=== PATIENT | female | born 1950 | race Caucasian/White ===

== ENCOUNTER → 2016-09-26 | Outpatient (CLI) | payer MEDICARE ==
--- NOTE | 2016-09-26 16:10 | RAD ---
Thoracic spine radiographs History: Thoracic back pain, no known injury. Comparison: None. Findings: AP, lateral, and swimmer's view of the thoracic spine. Osseous structures appear demineralized. There is dextroconvex scoliosis of the thoracolumbar junction with Johnston angle about 25 degrees from T11 through L3. There are 12 rib-bearing thoracic type vertebral bodies. No acute fracture or acute malalignment is identified. Paravertebral soft tissue stripe appears preserved. Impression: 1. Demineralization. 2. No acute osseous traumatic injury identified. 3. Scoliosis at the thoracolumbar junction.
== END | disposition home or self-care (01) ==
LOC: DXRADRC 11:32
PROVIDERS: ATTEND Nurse Practitioner Family
DX: M41.85 Other forms of scoliosis, thoracolumbar region (principal); M81.0 Age-related osteoporosis without current pathological fracture
CPT/HCPCS: 72072

== ENCOUNTER → 2017-02-16 | Outpatient (CLI) | payer MEDICARE ==
--- NOTE | 2017-02-16 10:10 | RAD ---
Pelvic ultrasound to include transabdominal and transvaginal imaging 02/16/2017 Clinical history: Pelvic pain. Technique: Using the distended urinary bladder as a sonographic window, a real-time ultrasound examination of the pelvis was performed. Additionally in an attempt to better evaluate the uterus and adnexa, a transvaginal ultrasound study was performed. Multiple images were obtained. Findings: The uterus is within normal limits in size and echogenicity. It measures 7.2 x 4.7 x 3.4 cm in longitudinal, transverse, and AP dimensions. The endometrial echo complex measures 3.5 mm in thickness which is within normal limits. No focal abnormality of the uterus is seen. Both ovaries are within normal limits in size and echogenicity. The right ovary measures 2.4 x 1.5 x 1.5 cm in size. The left ovary measures 2.6 x 2.1 x 1.6 cm in size. No adnexal mass is seen. No free fluid is noted. Impression: Negative study.
--- NOTE | 2017-02-16 10:32 | RAD ---
Ultrasound of the abdomen 02/16/2017 Clinical history: Abdominal pain. Technique: A real-time ultrasound examination of the abdomen was performed. Multiple images were obtained. Findings: The gallbladder is well-distended. No gallstones are visualized. The gallbladder wall thickness is within normal limits. No pericholecystic fluid is seen. The common bile duct measures 2.4 mm in diameter which is within normal limits. The liver is normal in size and echogenicity. It measures 15 cm in length. The spleen, visualized portions of the pancreas and both kidneys are within normal limits. The abdominal aorta tapers normally. The inferior vena cava is within normal limits. No free fluid is seen. Impression: Negative study.
== END | disposition home or self-care (01) ==
LOC: US 07:44
PROVIDERS: ATTEND Physician Assistant
DX: N28.1 Cyst of kidney, acquired (principal); N28.89 Other specified disorders of kidney and ureter; N32.89 Other specified disorders of bladder
CPT/HCPCS: 76700; 76830; 76856

== ENCOUNTER 2017-10-17 14:35 | Emergency (ER) | payer MEDICARE ==
[2017-10-17 14:36] VITALS: BP 147/63
[2017-10-17] MEDS ORDERED: DICL100G18 TP (16:15)
--- NOTE | 2017-10-17 16:15 | PHYS DOC ---
Past History Past Medical History: Hypothyroid, Other Past Surgical History: Tonsillectomy, Other Alcohol Use: None Drug Use: None Adult General Chief Complaint Chief Complaint: MECHANICAL FALL HPI HPI Patient is a 67 year old F who presents after a slip and fall just prior to arrival. Suzanne hit her chin and notes jaw pain. She has no headache. He also does have mild sternal chest pain is worse with palpation and movement. Her pain is better with rest and positioning. She has no other symptoms at this time. Review of Systems Review of Systems Constitutional: Denies fever or chills [] Eyes: Denies change in visual acuity, redness, or eye pain [] HENT: Denies nasal congestion or sore throat [] Respiratory: Denies cough or shortness of breath [] Cardiovascular: No additional information not addressed in HPI [] GI: Denies abdominal pain, nausea, vomiting, bloody stools or diarrhea [] : Denies dysuria or hematuria [] Musculoskeletal: Denies back pain or joint pain [] Integument: Denies rash or skin lesions [] Neurologic: Denies headache, focal weakness or sensory changes [] Endocrine: Denies polyuria or polydipsia [] All other systems were reviewed and found to be within normal limits, except as documented in this note. Family History Family History No pertinent family medical history was reported Current Medications Current Medications Current medications reviewed Allergies Allergies Allergies Coded Allergies Type Severity Reaction Last Updated Verified Penicillins Allergy Unknown 10/17/17 Yes azithromycin Allergy Unknown 10/17/17 Yes ciprofloxacin Allergy Unknown 10/17/17 Yes erythromycin base Allergy Unknown 10/17/17 Yes Physical Exam Physical Exam Constitutional: Well developed, well nourished, no acute distress, non-toxic appearance. [] HENT: Normocephalic, 2 similar laceration on the chin Eyes: PERRLA, EOMI, conjunctiva normal, no discharge. [] Neck: Normal range of motion, no tenderness, supple, no stridor. [] Cardiovascular:Heart rate regular rhythm Lungs & Thorax: Bilateral breath sounds clear to auscultation [] Abdomen: Bowel sounds normal, soft, no tenderness, no masses, no pulsatile masses. [] Skin: Warm, dry, no erythema, no rash. [] Back: No tenderness, no CVA tenderness. [] Extremities: No tenderness, no cyanosis, no clubbing, ROM intact, no edema. [] Neurologic: Alert and oriented X 3, normal motor function, normal sensory function, no focal deficits noted. [] Psychologic: Affect normal, judgement normal, mood normal. [] Current Patient Data Vital Signs Vital Signs Date Time Temp Pulse Resp B/P (MAP) Pulse Ox O2 Delivery O2 Flow Rate FiO2 10/17/17 14:36 98.3 81 16 98 Room Air EKG EKG [] Radiology/Procedures Radiology/Procedures Mandible x-ray and chest x-ray - no acute disease noted Course & Med Decision Making Course & Med Decision Making Pertinent Labs and Imaging studies reviewed. (See chart for details) Suzanne laceration was cleaned and repaired using Dermabond. Steri-Strips were also applied for added strength. Dragon Disclaimer Dragon Disclaimer This electronic medical record was generated, in whole or in part, using a voice recognition dictation system. Departure Departure: Impression: Primary Impression: Chin laceration Additional Impression: TMJ (sprain of temporomandibular joint) Disposition: HOME, SELF-CARE Condition: STABLE Referrals: LUIS ANTONIO YATES APRN (PCP) Patient Instructions: Facial Laceration, Temporomandibular Problems Additional Instructions: Suzanne was seen in the emergency department after a fall. No emergency medical condition was found on history or physical exam. She had normal imaging of her jaw and chest. She did have a laceration which was repaired with Dermabond. She is encouraged follow-up with her primary care doctor as needed for further management. She is also advised to return to the emergency room if she develops new or worsening symptoms. Scripts Diclofenac Sodium (VOLTAREN) 100 Gm Gel..gram. 1 GM TP QID, #100 GM 2 Refills Prov: AAYUSH KENNY MD 10/17/17 Problem Qualifiers Primary Impression: Chin laceration Encounter type: initial encounter Qualified Codes: S01.81XA - Laceration without foreign body of other part of head, initial encounter Additional Impression: TMJ (sprain of temporomandibular joint) Encounter type: initial encounter Qualified Codes: S03.40XA - Sprain of jaw , unspecified side, initial encounter AAYUSH KENNY MD Oct 17, 2017 16:15
[2017-10-17] MEDS ORDERED: DIPHTH,PERTUSS(ACELL),TET TOX 0.5 ML DISP.SYRIN. VAX IM ONE (16:30)
--- NOTE | 2017-10-18 11:29 | RAD ---
CHEST PA LATERAL Clinical Indication: chest pain Comparison: Chest radiograph dated 11/08/2010 Findings: Hyperexpanded lung volume. Bilateral nipple shadows. No focal consolidations. Normal pulmonary vasculature. Blunting of the costophrenic angles. No pneumothorax. The cardiomediastinal silhouette is normal. Unchanged mildly atherosclerotic thoracic aorta. No acute osseous abnormality. IMPRESSION: 1. No focal consolidations. 2. Blunting of the bilateral costophrenic angles may relate to small pleural effusions.
--- NOTE | 2017-10-18 11:32 | RAD ---
MANDIBLE COMPLETE 4+V Clinical Indication: fall, facial laceration Comparison: None. Findings: No displaced fracture or malalignment. The visualized paranasal sinuses are well aerated. Dental amalgam. No significant soft tissue abnormality. IMPRESSION: No displaced fracture or malalignment. If there is continued concern, CT face could be obtained.
== END 2017-10-17 16:29 | disposition home or self-care (01) ==
LOC: ER 14:35
DX: S01.81XA Laceration without foreign body of other part of head, initial encounter (principal); S03.40XA Sprain of jaw, unspecified side, initial encounter; E03.9 Hypothyroidism, unspecified; Z88.0 Allergy status to penicillin; Z88.1 Allergy status to other antibiotic agents; W01.198A Fall on same level from slipping, tripping and stumbling with subsequent striking against other object, initial encounter; Y93.89 Activity, other specified; Y99.8 Other external cause status; Y92.89 Other specified places as the place of occurrence of the external cause
CPT/HCPCS: 12011; 70110; 71046; 90471; 90715; 99284-25

== ENCOUNTER → 2017-11-12 | Outpatient (CLI) | payer MEDICARE ==
[2017-10-17 14:36] VITALS: BP 147/63
[~2017-11-12] MED LIST: DICL100G18 TP
--- NOTE | 2017-11-12 10:52 | RAD ---
History: Neck pain and back pain. Fall October 17, 2017. Comparison: Thoracic spine radiographs September 26, 2016 Findings: AP, lateral, and a suboptimal open-mouth odontoid views of the cervical spine. Patient is unable to open mouth optimally for odontoid view due to mandibular condyle fracture. Evaluation of C1 and C2 articulation is consequently limited. No acute fracture or acute malalignment is identified. Degenerative disc disease with partial loss of disc height at C5-6 is seen. No prevertebral soft tissue swelling is identified. Mild multilevel facet degeneration is seen. Osseous structures appear demineralized. AP, lateral, and swimmer's view of the thoracic spine. Focal moderate dextroconvex rotary scoliosis is seen at the thoracolumbar junction. Osseous structures are significantly demineralized. No convincing vertebral fracture is identified. Paravertebral soft tissue stripe appears preserved. Impression: 1. Demineralization. 2. No definite acute osseous abnormality identified in the cervical or thoracic spine. Electronically signed by: Jayme Chu MD (11/12/2017 10:49 AM) [facility]
== END | disposition home or self-care (01) ==
LOC: PMG 10:08
PROVIDERS: ATTEND Nurse Practitioner Family
DX: M50.30 Other cervical disc degeneration, unspecified cervical region (principal); M81.8 Other osteoporosis without current pathological fracture; W19.XXXD Unspecified fall, subsequent encounter
CPT/HCPCS: 72040; 72072

== ENCOUNTER → 2018-09-14 | Outpatient (CLI) | payer MEDICARE ==
--- NOTE | 2018-09-14 10:47 | RAD ---
EXAM: Sacroiliac joints, 3 views; lumbar spine, 5 views. HISTORY: Pain. COMPARISON: None. FINDINGS: 3 views of the sacroiliac joints and 5 views lumbar spine are obtained. There is S-shaped lumbar scoliosis, with dextrocurvature centered at L2 and compensatory levocurvature centered at L5. There is no significant listhesis. There is slight rightward lateral translation of L3 on L4. The vertebral bodies are normal in height. There is mild endplate remodeling at multiple levels. This is probably along the left aspect of L2-L3 and right aspect of L4-L5. This corresponds with the levels of maximum scoliotic curvature. There is slight disc space narrowing at L2-L3. There is facet arthropathy predominantly at the lumbosacral junction. There are incidental hypoplastic T12 ribs. The sacroiliac joints are intact. IMPRESSION: 1. Lumbar scoliosis and mild multilevel degenerative change, described above. 2. No acute osseous finding. Electronically signed by: Lore Sanchez MD (09/14/2018 10:44 AM) [facility]
== END | disposition home or self-care (01) ==
LOC: RAD 08:48
PROVIDERS: ATTEND Physician Assistant Medical
DX: M41.86 Other forms of scoliosis, lumbar region (principal); M47.896 Other spondylosis, lumbar region; M12.88 Other specific arthropathies, not elsewhere classified, other specified site
CPT/HCPCS: 72110; 72202

== ENCOUNTER 2020-03-03 13:35 | Emergency (ER) | payer MEDICARE ==
[~2020-03-03] VITALS: Ht 165.1 cm; Wt 52.2 kg
[2020-03-03 14:19] LABS: BASO % 1 % (0-3); EOS % 0 % (0-3); HEMATOCRIT 42.1 % (36.0-47.0); HEMOGLOBIN 14.1 g/dL (12.0-15.5); LYMPH # 0.8 x10^3/uL (1.0-4.8); LYMPH % 15 % (24-48); MEAN CORPUSCULAR HEMOGLOBIN 32 pg (25-35); MEAN CORPUSCULAR HGB CONC 33 g/dL (31-37); MEAN CORPUSCULAR VOLUME 95 fL (79-100); MONO # 0.4 x10^3/uL (0.0-1.1); MONO % 7 % (0-9); NEUT # 4.2 x10^3uL (1.8-7.7); NEUT % 78 % (31-73); PLATELET COUNT 207 x10^3/uL (140-400); RED BLOOD COUNT 4.42 x10^6/uL (3.50-5.40); RED CELL DISTRIBUTION WIDTH 13.8 % (11.5-14.5); WHITE BLOOD COUNT 5.4 x10^3/uL (4.0-11.0)
[2020-03-03 14:23] LABS: CALCIUM 9.7 mg/dL (8.5-10.1); CREATININE 0.7 mg/dL (0.6-1.0); GFR 82.7
[2020-03-03] MEDS ORDERED: IOHEXOL 300 MG/ML 75 ML VIAL. IV ONE (14:30)
[2020-03-03 14:52] LABS: CLARITY,URINE TURBID; COLOR,URINE RED
[2020-03-03 14:53] LABS: BACTERIA,URINE MANY /HPF (0-FEW); RBC,URINE TNTC /HPF (0-2)
--- NOTE | 2020-03-03 15:33 | RAD ---
EXAM: Abdomen and pelvis CT with intravenous contrast. HISTORY: Hematuria. TECHNIQUE: Computed tomographic images of the abdomen and pelvis were obtained following the administration of intravenous contrast. Multiplanar reformatting was performed. *One or more of the following individualized dose reduction techniques were utilized for this examination: 1. Automated exposure control. 2. Adjustment of the mA and/or kV according to patient size. 3. Use of iterative reconstruction technique. COMPARISON: None. FINDINGS: Evaluation of the lower thorax demonstrates a 4 mm nodule with surrounding groundglass within the posterior right lower lobe. There is no pleural effusion. The heart is normal in size. There is mild intrahepatic biliary ductal dilatation. There are 3 mm and 5 mm hypodense lesions within the right hepatic lobe. These are too small to characterize. The gallbladder is unremarkable. There is a prominent pancreatic duct. No pancreatic lesion is seen. The spleen is normal in size. There is a 1.9 cm right adrenal nodule, the attenuation which favors an adenoma. There is a tiny right renal cortical cyst. There is a tiny fat density lesion along the anterior mid zone of the right kidney which may be due to cortical scarring or a tiny angiomyolipoma. There is no hydronephrosis or suspicious renal lesion. There is moderate colonic stool. There is no bowel obstruction. There is no convincing bowel wall thickening. The appendix is not seen. The bladder is nearly empty. The uterus and adnexal regions are unremarkable. There is aortobiiliac atherosclerosis. There is no aneurysm. There are degenerative changes involving the spine. There are few tiny benign bone islands. There is no suspicious osseous lesion. IMPRESSION: 1. Moderate colonic stool. 2. Tiny hypodense lesions within the liver. In the absence of known malignancy, these are likely due to cysts or hemangiomas. There is also a tiny cyst within the right kidney and tiny focus of right cortical scarring or a tiny angiomyolipoma. 3. 4 mm pulmonary nodule with surrounding groundglass within the posterior right lower lobe. Follow-up can be performed in one year if there are risk factors for pulmonary neoplasm. 4. 1.9 cm right adrenal adenoma. 5. No convincing finding correlate with hematuria. Electronically signed by: Lore Sanchez MD (03/03/2020 3:30 PM) [id number]
--- NOTE | 2020-03-03 15:39 | PHYS DOC ---
Past History Past Medical History: Hypothyroid, Other Past Surgical History: Tonsillectomy, Other Alcohol Use: None Drug Use: None Adult General Chief Complaint Chief Complaint: BLOOD IN URINE [facility] HPI Patient is a pleasant 69-year-old female who presents for gross hematuria. Onset was noticed this morning without any known inciting event or trauma. Patient denies any recent changes in medication or antibiotics. Reports waking up, having increased frequency and urge to urinate and subsequently had dysuria with gross hematuria present. This concerned patient prompting her to visit our ER for evaluation. This is never happened to her before. She has no history of bladder cancer, does not abuse tobacco or alcohol. She has past medical history significant for SIBO and hypothyroidism, she uses NSAIDs intermittently for pain but nothing consistent. She denies any recent trauma Review of Systems Review of Systems Fourteen body systems of review of systems have been reviewed. See HPI for pertinent positives and negative responses, other bach all other systems are negative, non-pertinent or non-contributory Current Medications Current Medications Current Medications Medications (Trade) Dose Ordered Sig/Ondina Start Time Stop Time Status Last Admin Dose Admin Iohexol (Omnipaque 300 Mg/ml) 75 ml 1X ONCE 03/03/20 14:30 03/03/20 14:31 DC 03/03/20 15:08 75 ML Allergies Allergies Allergies Coded Allergies Type Severity Reaction Last Updated Verified Penicillins Allergy Unknown 10/17/17 Yes azithromycin Allergy Unknown 10/17/17 Yes ciprofloxacin Allergy Unknown 10/17/17 Yes erythromycin base Allergy Unknown 10/17/17 Yes Physical Exam Physical Exam Constitutional: Well developed, well nourished, no acute distress, non-toxic appearance. HENT: Normocephalic, atraumatic, bilateral external ears normal, oropharynx moist, no oral exudates, nose normal. Eyes: PERRLA, EOMI, conjunctiva normal, no discharge. Neck: Normal range of motion, no tenderness, supple, no stridor. Cardiovascular: Heart rate regular, sinus rhythm, no murmurs rubs or gallops Lungs & Thorax: Bilateral breath sounds clear to auscultation Abdomen: Bowel sounds normal, soft, no tenderness, no masses, no pulsatile masses. Nonsurgical abdomen, no peritoneal signs Skin: Warm, dry, no erythema, no rash. Back: No tenderness, no CVA tenderness. Extremities: No tenderness, no cyanosis, no clubbing, ROM intact, no edema. Neurologic: Alert and oriented X 3, grossly normal motor & sensory function, no focal deficits noted. Psychologic: Affect normal, judgement normal, mood normal. Current Patient Data Vital Signs Vital Signs Date Time Temp Pulse Resp B/P (MAP) Pulse Ox O2 Delivery O2 Flow Rate FiO2 03/03/20 15:52 98.1 92 18 160/80 (106) 100 Lab Results Laboratory Tests Test 03/03/20 13:45 03/03/20 14:00 Urine Collection Type Unknown Urine Color Red Urine Clarity Turbid Urine pH Urine Specific Superior Urine Protein (NEG-TRACE) Urine Glucose (UA) mg/dL (NEG) Urine Ketones (Stick) mg/dL (NEG) Urine Blood (NEG) Urine Nitrite (NEG) Urine Bilirubin (NEG) Urine Urobilinogen Dipstick mg/dL (0.2 mg/dL) Urine Leukocyte Esterase (NEG) Urine RBC Tntc /HPF (0-2) Urine WBC 11-20 /HPF (0-4) Urine Squamous Epithelial Cells None /LPF Urine Bacteria Many /HPF (0-FEW) White Blood Count 5.4 x10^3/uL (4.0-11.0) Red Blood Count 4.42 x10^6/uL (3.50-5.40) Hemoglobin 14.1 g/dL (12.0-15.5) Hematocrit 42.1 % (36.0-47.0) Mean Corpuscular Volume 95 fL (79-100) Mean Corpuscular Hemoglobin 32 pg (25-35) Mean Corpuscular Hemoglobin Concent 33 g/dL (31-37) Red Cell Distribution Width 13.8 % (11.5-14.5) Platelet Count 207 x10^3/uL (140-400) Neutrophils (%) (Auto) 78 % (31-73) Lymphocytes (%) (Auto) 15 % (24-48) Monocytes (%) (Auto) 7 % (0-9) Eosinophils (%) (Auto) 0 % (0-3) Basophils (%) (Auto) 1 % (0-3) Neutrophils # (Auto) 4.2 x10^3uL (1.8-7.7) Lymphocytes # (Auto) 0.8 x10^3/uL (1.0-4.8) Monocytes # (Auto) 0.4 x10^3/uL (0.0-1.1) Eosinophils # (Auto) 0.0 x10^3/uL (0.0-0.7) Basophils # (Auto) 0.0 x10^3/uL (0.0-0.2) Sodium Level 140 mmol/L (136-145) Potassium Level 4.0 mmol/L (3.5-5.1) Chloride Level 103 mmol/L (98-107) Carbon Dioxide Level 28 mmol/L (21-32) Anion Gap 9 (6-14) Blood Urea Nitrogen 25 mg/dL (7-20) Creatinine 0.7 mg/dL (0.6-1.0) Estimated GFR (Cockcroft-Gault) 82.7 Glucose Level 114 mg/dL (70-99) Calcium Level 9.7 mg/dL (8.5-10.1) EKG EKG [] Radiology/Procedures Radiology/Procedures PROCEDURE: CT ABD PELV W/ IV CONTRST ONLY EXAM: Abdomen and pelvis CT with intravenous contrast. HISTORY: Hematuria. TECHNIQUE: Computed tomographic images of the abdomen and pelvis were obtained following the administration of intravenous contrast. Multiplanar reformatting was performed. *One or more of the following individualized dose reduction techniques were utilized for this examination: 1. Automated exposure control. 2. Adjustment of the mA and/or kV according to patient size. 3. Use of iterative reconstruction technique. COMPARISON: None. FINDINGS: Evaluation of the lower thorax demonstrates a 4 mm nodule with surrounding groundglass within the posterior right lower lobe. There is no pleural effusion. The heart is normal in size. There is mild intrahepatic biliary ductal dilatation. There are 3 mm and 5 mm hypodense lesions within the right hepatic lobe. These are too small to characterize. The gallbladder is unremarkable. There is a prominent pancreatic duct. No pancreatic lesion is seen. The spleen is normal in size. There is a 1.9 cm right adrenal nodule, the attenuation which favors an adenoma. There is a tiny right renal cortical cyst. There is a tiny fat density lesion along the anterior mid zone of the right kidney which may be due to cortical scarring or a tiny angiomyolipoma. There is no hydronephrosis or suspicious renal lesion. There is moderate colonic stool. There is no bowel obstruction. There is no convincing bowel wall thickening. The appendix is not seen. The bladder is nearly empty. The uterus and adnexal regions are unremarkable. There is aortobiiliac atherosclerosis. There is no aneurysm. There are degenerative changes involving the spine. There are few tiny benign bone islands. There is no suspicious osseous lesion. IMPRESSION: 1. Moderate colonic stool. 2. Tiny hypodense lesions within the liver. In the absence of known malignancy, these are likely due to cysts or hemangiomas. There is also a tiny cyst within the right kidney and tiny focus of right cortical scarring or a tiny angiomyolipoma. 3. 4 mm pulmonary nodule with surrounding groundglass within the posterior right lower lobe. Follow-up can be performed in one year if there are risk factors for pulmonary neoplasm. 4. 1.9 cm right adrenal adenoma. 5. No convincing finding correlate with hematuria. Electronically signed by: Lore Sanchez MD (03/03/2020 3:30 PM) [id number] Course & Med Decision Making Course & Med Decision Making Well-appearing ambulatory patient seen on immediate ER arrival ABCs non-concerning Comprehensive history and physical exam obtained, subsequent diagnostic work-up ordered Reviewed extensive ER findings with patient but disclosed I had no definitive cause for patient's gross hematuria. As a result, I contacted on-call urologist at [facility], Jamal Qureshi MD Case was discussed extensively with Dr. Qureshi, he agreed with ER work-up so far, advised that I treat patient for complicated UTI with p.o. Bactrim and schedule close follow-up with their services within the upcoming week for outpatient cystoscopy I discussed this conversation with patient, she reported good understanding with plan of care as stated. She was given x1 p.o. double strength Bactrim prior to discharge and tolerated this well. Subsequent prescription written prior to departure Strict return precautions were discussed with good understanding, all questions and concerns addressed prior to ER departure with new prescription for Bactrim, close PCP follow-up for incidental CT imaging findings and subsequent outpatient urology follow-up for cystoscopy [place] Disclaimer Dragon Disclaimer This electronic medical record was generated, in whole or in part, using a voice recognition dictation system. Departure Departure: Impression: Primary Impression: Gross hematuria Additional Impressions: Liver lesion Lung nodule seen on imaging study Adrenal adenoma Disposition: 01 HOME/RESIDENCE PRIOR TO ADM Condition: STABLE Referrals: ALEX GARZON (PCP) Additional Instructions: As discussed prior to ER departure, please call [facility] urology for follow-up They can be reached at [phone] Scripts Sulfamethoxazole/Trimethoprim (BACTRIM DS TABLET) 1 Each Tablet 1 TAB PO BID for UTI for 7 Days, #14 TAB 0 Refills Prov: CHANDLER ROWE DO 03/03/20 Justification of Admission: Justification of Admission: Justification of Admission Dx: N/A Problem Qualifiers CHANDLER ROWE DO Mar 03, 2020 15:39
[2020-03-03 15:52] VITALS: BP 160/80
[2020-03-03] MEDS ORDERED: SMZ/TMP 800/160MG TABLET. PO ONE (16:00)
[2020-03-03] MEDS ORDERED: SULF1TAB24 PO (16:02)
== END 2020-03-03 16:16 | disposition home or self-care (01) ==
LOC: ER 13:35
DX: R31.0 Gross hematuria (principal); R91.1 Solitary pulmonary nodule; D35.01 Benign neoplasm of right adrenal gland; K76.9 Liver disease, unspecified; E03.9 Hypothyroidism, unspecified; Z88.0 Allergy status to penicillin; Z88.1 Allergy status to other antibiotic agents
CPT/HCPCS: 36415; 74177; 80048; 81001; 85025; 87086; 99285; Q9967

== ENCOUNTER → 2020-03-05 | Outpatient (CLI) | payer MEDICARE ==
[2020-03-03 15:52] VITALS: BP 160/80
[~2020-03-05] MED LIST changes: +SULF1TAB24 PO
--- NOTE | 2020-03-05 14:53 | RAD ---
EXAM: Right hip and pelvis, 3 views. HISTORY: Pain. COMPARISON: None. FINDINGS: A frontal view the pelvis and 2 views of the right hip are obtained. There is no fracture, dislocation or subluxation. There is lumbar scoliosis and degenerative change involving the lumbar spine. There is mild degenerative change involving the sacroiliac joints. IMPRESSION: No acute osseous finding. Electronically signed by: Lore Sanchez MD (03/05/2020 2:50 PM) [id number]
== END | disposition home or self-care (01) ==
LOC: RAD 11:53
PROVIDERS: ATTEND Physician Assistant Medical
DX: M46.1 Sacroiliitis, not elsewhere classified (principal); M41.86 Other forms of scoliosis, lumbar region; M47.816 Spondylosis without myelopathy or radiculopathy, lumbar region
CPT/HCPCS: 73502

== ENCOUNTER 2020-03-08 23:10 | Emergency (ER) | payer MEDICARE ==
[~2020-03-08] VITALS: Ht 165.1 cm; Wt 52.2 kg
--- NOTE | 2020-03-08 23:48 | PHYS DOC ---
Past History Past Medical History: Hypothyroid, Other Past Surgical History: Tonsillectomy, Other Alcohol Use: None Drug Use: None General Adult EDM: Chief Complaint: LOWEREXTREMITY INJURY HPI: HPI: Patient is a 69-year-old female who presents to the emergency room with bleeding from her varicose vein on her right lower extremity. Patient states that around 10:30 PM today she was itching her right leg and noticed a large amount of bleeding from her varicose vein. Patient states that she was unable to control the bleeding so she decided to come into the emergency room. Patient denies taking any blood thinners. Review of Systems: Review of Systems: Constitutional: Denies fever or chills Eyes: Denies redness or eye pain HENT: Denies nasal congestion or sore throat Respiratory: Denies cough or shortness of breath Cardiovascular: Denies chest pain or palpitations GI: Denies abdominal pain, nausea, or vomiting : Denies dysuria or hematuria Musculoskeletal: Denies back pain or joint pain Integument: Denies rash or skin lesions Neurologic: Denies headache, focal weakness or sensory changes Complete systems were reviewed and found to be within normal limits, except as documented in this note. Allergies: Allergies: Allergies Coded Allergies Type Severity Reaction Last Updated Verified sulfamethoxazole Allergy Mild 03/08/20 Yes trimethoprim Allergy Mild 03/08/20 Yes Penicillins Allergy Unknown 10/17/17 Yes azithromycin Allergy Unknown 10/17/17 Yes ciprofloxacin Allergy Unknown 10/17/17 Yes erythromycin base Allergy Unknown 10/17/17 Yes Physical Exam: PE: Constitutional: Well developed, well nourished, no acute distress, non-toxic appearance HENT: Normocephalic, atraumatic Eyes: PERRL, EOMI, conjunctiva normal, no discharge Neck: Normal range of motion, no tenderness, supple Lungs & Thorax: No respiratory distress, equal chest rise and fall Abdomen: Soft, no tenderness Skin: Warm, dry, no erythema, no rash Back: No tenderness, no CVA tenderness Extremities: No tenderness, ROM intact, no edema, mild abrasion in right lower extremity with bleeding controlled at this time Neurologic: Alert and oriented X 3, normal motor function, normal sensory function, no focal deficits noted Psychologic: Affect normal, judgment normal Current Patient Data: Vital Signs: Vital Signs Date Time Temp Pulse Resp B/P (MAP) Pulse Ox O2 Delivery O2 Flow Rate FiO2 03/08/20 23:15 97.7 83 16 162/92 (115) 98 Room Air Course & Med Decision Making: Course & Med Decision Making Patient is a 69-year-old female who presents the emergency room with bleeding from a varicose vein on her right lower extremity. We were able to control the bleeding by applying direct pressure. Dressing was applied to the area of the abrasion. Patient is comfortable being discharged at this time. Return precautions given. Dragon Disclaimer: Dragon Disclaimer: This electronic medical record was generated, in whole or in part, using a voice recognition dictation system. Departure Departure: Impression: Primary Impression: Bleeding from varicose veins of right lower extremity Disposition: HOME/RESIDENCE PRIOR TO ADM Condition: STABLE Referrals: ALEX GARZON (PCP) Patient Instructions: Bleeding Varicose Veins Justification of Admission: Justification of Admission: Justification of Admission Dx: N/A PRIMITIVO SAPP DO Mar 08, 2020 23:48
[2020-03-08 23:57] VITALS: BP 154/90
== END 2020-03-09 00:14 | disposition home or self-care (01) ==
LOC: ER 23:10
DX: S80.811A Abrasion, right lower leg, initial encounter (principal); I83.891 Varicose veins of right lower extremity with other complications; E03.9 Hypothyroidism, unspecified; Z88.0 Allergy status to penicillin; Z88.1 Allergy status to other antibiotic agents; Z88.2 Allergy status to sulfonamides; X58.XXXA Exposure to other specified factors, initial encounter; Y93.89 Activity, other specified; Y92.89 Other specified places as the place of occurrence of the external cause; Y99.8 Other external cause status
CPT/HCPCS: 99282

== ENCOUNTER → 2020-03-20 | Outpatient (CLI) | payer MEDICARE ==
[2020-03-08 23:57] VITALS: BP 154/90
== END | disposition home or self-care (01) ==
LOC: LAB 12:48
PROVIDERS: ATTEND Family Medicine
DX: R50.9 Fever, unspecified (principal); Z20.828 Contact with and (suspected) exposure to other viral communicable diseases
CPT/HCPCS: U0003-CS

== ENCOUNTER → 2020-08-28 | Outpatient (CLI) | payer MEDICARE ==
--- NOTE | 2020-08-28 10:45 | RAD ---
EXAM: Right hip sonogram. HISTORY: Possible lump. TECHNIQUE: Sonographic imaging of the right hip at the site of palpable concern was performed. COMPARISON: None. FINDINGS: There is asymmetric subcutaneous fat along the right greater than left lateral hip soft tis sues, measuring 1.3 cm in thickness on the right and 0.8 cm in thickness on the left. No mass or flui d collection is seen. IMPRESSION: Asymmetric subcutaneous fat underlying the site of palpable concern along the lateral rig ht hip, compared to the contralateral hip. No mass is seen. Electronically signed by: Lore Sanchez MD (08/28/2020 10:42 AM) [id number]
== END ==
LOC: US 09:56
PROVIDERS: ATTEND Physician Assistant Medical
DX: D17.9 Benign lipomatous neoplasm, unspecified (principal); M25.851 Other specified joint disorders, right hip
CPT/HCPCS: 76881

== ENCOUNTER 2021-10-30 08:59 | Emergency (ER) | payer MEDICARE ==
[~2021-10-30] VITALS: Ht 170.2 cm; Wt 50.1 kg
--- NOTE | 2021-10-30 09:24 | PHYS DOC ---
Past History Past Medical History: Hypothyroid, Other Additional Past Medical Histor: THYROID NODULES, BENIGN BX;LOW WBC; TACHYCARDIA; EXOCRINE PANCREATIC INSUFF Past Surgical History: Tonsillectomy, Other Alcohol Use: None Drug Use: None General Adult EDM: Chief Complaint: CHEST PAIN HPI: HPI: 71-year-old female presents with chest pain. The had pain last night around 1215 that lasted for at least an hour but less than 2 hours. The patient describes it as a central chest pressure that radiated through to her back. It was moderate in intensity and she felt like her heart was beating a little faster. She walked around the house and waited to see what would happen. Before 2 AM, the pain was completely gone and she was able to lie down to go to sleep. She has had no pain since that time. Denies shortness of breath or diaphoresis. No history of cardiac disease. She has not had a stress test in many years. 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 She does not drink caffeine because of this. Denies fever or chills. Review of Systems: Review of Systems: Constitutional: Denies fever or chills Eyes: Denies change in visual acuity HENT: Denies nasal congestion or sore throat Respiratory: Denies cough or shortness of breath Cardiovascular: Chest pain GI: Denies abdominal pain, nausea, vomiting, bloody stools or diarrhea : Denies dysuria Musculoskeletal: Denies back pain or joint pain Integument: Denies rash Neurologic: Denies headache, focal weakness or sensory changes Endocrine: Denies polyuria or polydipsia Lymphatic: Denies swollen glands Psychiatric: Denies depression or anxiety Allergies: Allergies: Allergies Coded Allergies Type Severity Reaction Last Updated Verified sulfamethoxazole Allergy Mild 10/30/21 Yes trimethoprim Allergy Mild 10/30/21 Yes Penicillins Allergy Unknown 10/30/21 Yes abaloparatide Allergy Unknown 10/30/21 Yes azithromycin Allergy Unknown 10/30/21 Yes ciprofloxacin Allergy Unknown 10/30/21 Yes erythromycin base Allergy Unknown 10/30/21 Yes nitrofurantoin Allergy Unknown 10/30/21 Yes Uncoded Allergies Type Severity Reaction Last Updated Verified CORTISONE SHOT Allergy Unknown 10/30/21 Physical Exam: PE: Constitutional: Well developed, well nourished, thin, no acute distress, non- toxic appearance. [] HENT: Normocephalic, atraumatic, bilateral external ears normal, oropharynx moist, no oral exudates, nose normal. [] Eyes: PERRLA, EOMI, conjunctiva normal, no discharge. [] Neck: Normal range of motion, no tenderness, supple, no stridor. [] Cardiovascular: Heart rate 70, regular rhythm, no murmur [] Lungs & Thorax: Bilateral breath sounds clear to auscultation [] Abdomen: Bowel sounds normal, soft, no tenderness, no masses, no pulsatile masses. [] Skin: Warm, dry, no erythema, no rash. [] Back: No tenderness, no CVA tenderness. [] Extremities: No tenderness, no cyanosis, no clubbing, ROM intact, no edema. [] Neurologic: Alert and oriented X 3, normal motor function, normal sensory function, no focal deficits noted. [] Psychologic: Affect normal, judgement normal, mood normal. [] Current Patient Data: Vital Signs: Vital Signs Date Time Temp Pulse Resp B/P (MAP) Pulse Ox O2 Delivery O2 Flow Rate FiO2 10/30/21 09:05 98.4 73 14 152/109 (123) 97 Room Air EKG: EKG: [] Radiology/Procedures: Radiology/Procedures: [] Impressions: EXAM: Chest, single view. HISTORY: Chest pain. COMPARISON: 10/17/2017 FINDINGS: A frontal view of the chest is obtained. There is no infiltrate, pleural effusion or pneumothorax. There is a stable cardiac silhouette. There is a stable circumscribed nodule overlying the left lower lobe due to a nipple shadow. There is hyperinflation due to emphysema. IMPRESSION: No acute pulmonary finding. Electronically signed by: Lore Sanchez MD (10/30/2021 9:34 AM) [id number] DICTATED AND SIGNED BY: LORE SANCHEZ MD DATE: 10/30/2133 CC: MEDHAT DE JESUS DO; ALEX GARZON ~ Heart Score: C/O Chest Pain: Yes HEART Score for Chest Pain: HEART Score for Chest Pain Response (Comments) Value History Slighlty/Non-Suspicious 0 ECG Normal 0 Age > 65 2 Risk Factors 1 or 2 Risk Factors 1 Troponin < Normal Limit 0 Total 3 Risk Factors: Risk Factors: DM, Current or recent (<one month) smoker, HTN, HLP, family history of CAD, obesity. Risk Scores: Score 0 - 3: 2.5% MACE over next 6 weeks - Discharge Home Score 4 - 6: 20.3% MACE over next 6 weeks - Admit for Clinical Observation Score 7 - 10: 72.7% MACE over next 6 weeks - Early Invasive Strategies Course & Med Decision Making: Course & Med Decision Making Pertinent Labs and Imaging studies reviewed. (See chart for details) The patient's labs are significant for a low white count of 2. She does not meet criteria for neutropenia. Her EKG is unremarkable. Her troponin is negative. Her chest x-ray is negative for acute findings. This does not appear to be cardiopulmonary in nature. I have advised the patient follow-up with her primary physician. She may want to consider a stress test. She is stable for discharge at this time. [] Darron Disclaimer: Dragon Disclaimer: This electronic medical record was generated, in whole or in part, using a voice recognition dictation system. Departure Departure: Impression: Primary Impression: Chest pain Disposition: HOME / SELF CARE / HOMELESS Condition: STABLE Referrals: ALEX GARZON (PCP) Patient Instructions: Chest Pain (Nonspecific), [id number] MEDHAT DE JESUS DO October 30, 2021 09:24
--- NOTE | 2021-10-30 09:36 | RAD ---
EXAM: Chest, single view. HISTORY: Chest pain. COMPARISON: 10/17/2017 FINDINGS: A frontal view of the chest is obtained. There is no infiltrate, pleural effusion or pneumo thorax. There is a stable cardiac silhouette. There is a stable circumscribed nodule overlying the le ft lower lobe due to a nipple shadow. There is hyperinflation due to emphysema. IMPRESSION: No acute pulmonary finding. Electronically signed by: Lore Sanchez MD (10/30/2021 9:34 AM) [id number]
[2021-10-30 09:52] LABS: BASO % 1 % (0-3); EOS % 1 % (0-3); HEMATOCRIT 35.9 % (36.0-47.0); HEMOGLOBIN 11.9 g/dL (12.0-15.5); LYMPH # 0.8 x10^3/uL (1.0-4.8); LYMPH % 41 % (24-48); MEAN CORPUSCULAR HEMOGLOBIN 32 pg (25-35); MEAN CORPUSCULAR HGB CONC 33 g/dL (31-37); MEAN CORPUSCULAR VOLUME 95 fL (79-100); MONO # 0.2 x10^3/uL (0.0-1.1); MONO % 8 % (0-9); NEUT % 49 % (31-73); PLATELET COUNT 155 x10^3/uL (140-400); RED BLOOD COUNT 3.77 x10^6/uL (3.50-5.40)
[2021-10-30 09:56] LABS: CREATININE 0.5 mg/dL (0.6-1.0); GFR 121.3; POTASSIUM 3.8 mmol/L (3.5-5.1)
[2021-10-30 10:02] LABS: ALBUMIN 3.4 g/dL (3.4-5.0); ALBUMIN/GLOBULIN RATIO 1.3 (1.0-1.7); TOTAL BILIRUBIN 0.5 mg/dL (0.2-1.0)
[2021-10-30 10:39] VITALS: BP 135/70
--- NOTE | 2021-10-30 12:11 | EKG ---
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
[2021-10-30 12:35] LABS: % BANDS 7 % (0-9); % LYMPHS 53 % (24-48); % MONOS 1 % (0-10); % SEGS 39 % (35-66)
[2021-10-30 12:36] LABS: PLT ESTIMATE ADEQUATE (ADEQUATE)
== END 2021-10-30 10:55 | disposition home or self-care (01) ==
LOC: ER 08:59
DX: R07.89 Other chest pain (principal); E03.9 Hypothyroidism, unspecified; Z88.2 Allergy status to sulfonamides; Z88.0 Allergy status to penicillin; Z88.1 Allergy status to other antibiotic agents; Z88.8 Allergy status to other drugs, medicaments and biological substances
CPT/HCPCS: 36415; 71045; 80053; 84484; 85007; 85025; 93005; 99285